=== PATIENT | female | born 1980 | race Caucasian/White ===

== ENCOUNTER 2019-07-03 13:12 | Outpatient (CLI) | payer BC, SELFPAY ==
--- NOTE | ~2019-07-03 | MR_ITS ---
EXAMINATION: MR knee RT wo con DATE: 07/03/2019 15:04 INDICATION: Lateral right knee pain was reported recent dislocation 1 month prior. TECHNIQUE: Magnetic resonance imaging (MRI) of the right knee was performed without intravenous contr ast. Sequences included coronal PD-weighted FSE, coronal PD-weighted FS FSE, sagittal T2-weighted FS E, sagittal PD-weighted FS FSE and axial PD weighted fat saturated FSE. COMPARISON: None. FINDINGS: Medial compartment: Medial meniscus is normal. Shallow partial thickness fissure or potentially nondisplaced shallow chucho dral flap along the anterolateral margin of the anterior weightbearing medial femoral condyle. Remain liz of the articular cartilage is normal. Lateral compartment: Lateral meniscus is normal. Articular cartilage is normal. Patellofemoral compartment: Horizontal band of deep chondral fissuring with mild underlying subarticular edema and likely develop ing cystic change which extends across the central aspect of the lateral patellar facet, apical ridge and medial facet. Deep chondral ulceration with irregularity to the articular cortex and mild subart icular edema extending from the central aspect of the medial trochlea to the inferior aspect of the t rochlear groove and adjacent inferomedial aspect of the lateral trochlea. Ligaments and tendons: Avulsion at the femoral footplate of the posterolateral bundle of the anterior cruciate ligament whic h is retracted distally with mild thickening of the tear margin which is retracted approximately 5 mm distally. The anteromedial band of the anterior cruciate ligament remains intact. There is mild thic kening and increased signal involving the posterior half of the proximal medial collateral ligament w ith minimal surrounding edema consistent with a likely subacute moderate grade sprain. The extensor m echanism is normal. The visualized medial and lateral hamstring tendons as well as the iliotibial ban d are normal. Fluid: Minimal right knee joint effusion. No loose osteochondral bodies identified. Osseous/other: Mild increased PD weighted signal extending along the posterior aspect of the medial tibial plateau m arrow and juxtaposed medial margin of the central weightbearing medial femoral condyle without eviden t fracture lines with location suggesting possible bone contusion. More diffuse scattered patchy subt le increased signal in the metaphyseal regions of the tibia and distal femur are more likely related to red marrow reexpansion. No fracture or pathologic marrow replacing process. IMPRESSION: 1. Avulsion of the femoral attachment of the posterolateral bundle of the anterior cruciate ligament. The anteromedial bundle appears to remain intact. 2. Moderate grade sprain of the proximal medial collateral ligament. 3. 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 4. Possible bone contusions along the posterior aspect of the medial tibial plateau and medial side o f the central weightbearing medial femoral condyle. Reviewed, dictated and finalized at location A. H PAINTER IMPRESSION: 1. Avulsion of the femoral attachment of the posterolateral bundle of the anter ior cruciate ligament. The anteromedial bundle appears to remain intact. 2. Moderate grade sprain of the proximal medial collateral ligament. 3. 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 4. Possible bone contusions along the posterior aspect of the medial tibial alicia teau and medial side of the central weightbearing medial femoral
== END 2019-07-03 13:13 | disposition home or self-care (01) ==
PROVIDERS: Visit Provider Orthopaedic Surgery
DX: S83.511A Sprain of anterior cruciate ligament of right knee, initial encounter (principal); M22.41 Chondromalacia patellae, right knee
CPT/HCPCS: 73721

== ENCOUNTER → 2021-10-18 10:38 | Outpatient (CLI) | payer BC, SELFPAY ==
--- NOTE | ~2021-10-18 | MM_ITS ---
EXAMINATION: MM screening carolyne BI w shanta HISTORY: Screening mammogram TECHNIQUE: Craniocaudal and mediolateral oblique 3-D tomosynthesis images were obtained and synthetic 2-D images were generated. CAD analysis was submitted and interpreted. COMPARISON: No prior mammogram is available for comparison at this institution. BREAST PARENCHYMAL COMPOSITION: The breasts are heterogeneously dense, which may obscure small masses . FINDINGS: Postoperative change from bilateral reduction mammoplasty. There is no evidence of suspicio us mass, calcification, or architectural distortion to suggest malignancy in either breast. IMPRESSION: 1. No mammographic evidence of malignancy. 2. Recommend routine screening mammography in one year. BI-RADS Category 2: Benign finding(s). Reviewed, dictated and finalized at location A.
== END ==
PROVIDERS: PCP Obstetrics & Gynecology; Visit Provider Obstetrics & Gynecology
DX: Z12.31 Encounter for screening mammogram for malignant neoplasm of breast (principal)
CPT/HCPCS: 77063; 77067

== ENCOUNTER 2022-04-13 10:48 | Emergency (ER) | payer BC, SELFPAY ==
[2022-04-13 11:38] VITALS: BP 108/82; PULSE 113; RESP 18; TEMP 36.8; O2SAT 100
--- NOTE | 2022-04-13 12:27 | ED.URI ---
HPI - URI/Sore Throat General Chief Complaint: Upper Respiratory Infection Stated Complaint: sorethroat,cough,bodyaches Time Seen by Provider: 04/13/22 12:14 Source: patient Mode of arrival: ambulatory Limitations: no limitations History of Present Illness HPI Narrative: Patient presents today complaining of chills, sweats, headache, mild cough, sore throat, postnasal drip since yesterday. She denies fever shortness of breath. She has been taking Aleve, NyQuil, and vitamin-C with some relief. Related Data Allergies Allergy/AdvReac Type Severity Reaction Status Date / Time clarithromycin Allergy Unknown Hives Verified 04/13/22 11:37 levofloxacin Allergy Unknown unknown Verified 04/13/22 11:37 morphine AdvReac Mild SICK N/V Verified 04/13/22 11:37 Review of Systems Review of Systems: CONSTITUTIONAL: Denies body aches, fever. + chills, sweats EYES: Denies visual changes, redness, or discharge. ENT: Denies rhinorrhea, congestion, or otalgia.+ sore throat, postnasal drip CARDIOVASCULAR: Denies chest pain, palpitations, or edema. RESPIRATORY: Denies dyspnea.+ cough GASTROINTESTINAL: Denies abdominal pain, nausea, vomiting, or diarrhea. GENITOURINARY: Denies dysuria or hematuria. SKIN: Denies rash, itching, or wounds. MUSCULOSKELETAL: Denies back pain, joint pain, or myalgia. NEUROLOGIC: Denies numbness, tingling, or + headache PSYCH: Denies depression or anxiety. 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 History of laparoscopy age 14 endometriosis History of robot-assisted laparoscopic hysterectomy (01/21/17) Robtic assisted total laparoscopic Hysterectomy - uterine prolaspe- menometrorrhagia- Dysmenorrhea- parakertosis, subserosal fibrosis , myometrium; bilateral salpingectomy Family History Family History Mother Diabetes mellitus Lymphedema Malignant neoplasm of eye Basal cell carcinoma of skin Family history of heart disease Family history of stroke Social History Social History Smoking status: Never smoker Alcohol intake: never Substance use: never Substance use type: does not use Additional living arrangements comments: and 2 children. Additional occupation/education comments: Stylist Gender identity (if verbalized by the patient): Female Sexual Orientation (if Verbalized by the Patient): Straight or Heterosexual Comments At time of signature, I have reviewed and agree with nursing past medical, surgical, social and family history unless otherwise noted. Please see nursing chart for further information. There is no relevant family history pertinent to the presenting complaint Exam Narrative: GENERAL: mildly ill-appearing, well-nourished, and in no acute distress. HEAD: Normocephalic, atraumatic. EYES: EOMI. No redness or drainage. Conjunctivae normal. ENT: Mucous membranes pink and moist. Nares clear. No rhinorrhea. TMs normal bilaterally. Throat normal. Uvula midline. NECK: Normal AROM. Supple. No lymphadenopathy. CHEST: No respiratory distress. Clear to auscultation. HEART: Regular rate and rhythm. No murmur appreciated. Normal peripheral pulses. EXTREMITIES: Normal range of motion. No edema. SKIN: Warm, dry, no rash. Capillary refill normal. Normal skin turgor. NEURO: No focal deficits. Alert and oriented x3. Gait steady. PSYCH: Normal affect. No signs of depression or anxiety. Course
== END 2022-04-13 12:40 | disposition home or self-care (01) ==
PROVIDERS: Emergency Provider Nurse Practitioner
DX: J06.9 Acute upper respiratory infection, unspecified (principal); N80.9 Endometriosis, unspecified; R01.1 Cardiac murmur, unspecified
CPT/HCPCS: 99211; G0463

== ENCOUNTER 2023-07-18 12:56 | Emergency (ER) | payer BC, SELFPAY ==
--- NOTE | 2023-07-18 13:06 | ED.URI ---
HPI - URI/Sore Throat General Chief Complaint: Upper Respiratory Infection Stated Complaint: cold / flu like symptoms Time Seen by Provider: 07/18/23 13:06 Source: patient Mode of arrival: ambulatory Limitations: no limitations History of Present Illness HPI Narrative: Felisha is a 42-year-old female patient presenting to the clinic today with complaints of runny nose, cough, congestion, headache, body aches, and chills x5 days. MD elicited complaint: sore throat and nasal congestion Related Data Home Medications Medication Instructions Recorded Confirmed No Home Medications 07/18/23 07/18/23 Allergies Allergy/AdvReac Type Severity Reaction Status Date / Time clarithromycin Allergy Unknown Hives Verified 07/18/23 13:19 levofloxacin Allergy Unknown unknown Verified 07/18/23 13:19 morphine AdvReac Mild SICK N/V Verified 07/18/23 13:19 Review of Systems Review of Systems: Pertinent positives per HPI. Patient denies any fever, rash, headache, visual changes, dizziness, shortness of breath, chest pain, palpitations, nausea, vomiting, diarrhea, constipation, abdominal pain, or any urinary issues. 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 History of laparoscopy age 14 endometriosis History of robot-assisted laparoscopic hysterectomy (01/21/17) Robtic assisted total laparoscopic Hysterectomy - uterine prolaspe- menometrorrhagia- Dysmenorrhea- parakertosis, subserosal fibrosis , myometrium; bilateral salpingectomy Family History Family History Mother Diabetes mellitus Lymphedema Malignant neoplasm of eye Basal cell carcinoma of skin Family history of heart disease Family history of stroke Social History Social History (Updated 10/15/22 @ 09:53 by YOAN Joseph) Smoking status: Never smoker Alcohol intake: never Substance use: never Substance use type: does not use Lack of Transportation: No Lack of Food: Never True Current Housing: I Have Housing Concerned About Future Housing: No Difficulty Paying Gas/Electric Bills: No Difficulty Paying for Meds: No Currently Unemployed: No Education: Trade/Vocational Certificate Difficulty w/ Childcare or Family Care: No Living arrangements: other Additional living arrangements comments: and 2 children. 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 There is no relevant family history pertinent to the patient complaint. Exam Narrative: General: Well-developed, well nourished, in no apparent distress Head: Normocephalic, atraumatic Eyes: Pupils equally round and reactive to light bilaterally, EOM intact, sclera and conjunctive clear, no discharge, lids normal Ears: TMs intact and clear, ear canals clear, no drainage, grossly hearing normal. Nose: Nares patent, clear nasal discharge, no inflammation, no sinus tenderness. Mouth: Oral pharynx without lesions or masses, good dentition, MMM. Postnasal drip Neck: Supple, trachea midline, no enlargement of anterior or posterior cervical nodes, no thyroid masses or goiter palpable. Cardio: Regular rate and rhythm, s1 and s2 normal, no murmur appreciated. Resp: Clear to
[2023-07-18 13:16] VITALS: BP 116/68; PULSE 110; RESP 18; TEMP 37.1; O2SAT 100
== END 2023-07-18 14:00 | disposition home or self-care (01) ==
PROVIDERS: Emergency Provider Nurse Practitioner Family
DX: B34.9 Viral infection, unspecified (principal); J06.9 Acute upper respiratory infection, unspecified; J02.9 Acute pharyngitis, unspecified; Z20.822 Contact with and (suspected) exposure to COVID-19; R01.1 Cardiac murmur, unspecified
CPT/HCPCS: 87081; 87426; 87804; 87880; 99213; G0463

== ENCOUNTER 2024-08-08 14:12 | Outpatient (CLI) | payer BC, SELFPAY ==
--- NOTE | ~2024-08-08 | MM_ITS ---
EXAMINATION: MM screening carolyne BI w shanta HISTORY: Screening TECHNIQUE: Craniocaudal and mediolateral oblique 3-D tomosynthesis images were obtained and synthetic 2-D images were generated. CAD analysis was submitted and interpreted. COMPARISON: 10/18/2021 BREAST PARENCHYMAL COMPOSITION: The breasts are heterogeneously dense, which may obscure small masses . FINDINGS: Punctate calcifications detected bilaterally, stable and benign in appearance, dermal in or igin. Stable parenchymal pattern without suspicious microcalcifications, architectural distortion, discrete masses or significant asymmetry. IMPRESSION: 1. No mammographic evidence of malignancy. 2. Recommend routine screening mammography in one year. BI-RADS Category 2: Benign finding(s). Reviewed, dictated and finalized at location A.
--- OUTSIDE RECORDS SUMMARY | 2024-08-08 16:21 | XMS_ITS | Clinical Summary ---
Author Organization [facility] Address [facility] [place] [address] Care Team Providers Care Bone Char Kiln Tender Name Role Phone Unavailable Primary Care Provider Unavailabl e Allergies Active Allergy Reactions Criticality Noted Date Comments Clarithromycin Hives,Swelling,Throat swelling 0 02/11/2019 Medications valACYclovir 500 MG tablet TAKE 1 TABLET BY MOUTH TWICE DAILY FOR 3 DAYS NEEDED 06/27/2020 Active Active Problems No known active problems Immunizations Name Administration Dates Next Due PFIZER COVID-19 (ORIGINAL FO RMULATION, PURPLE CAP) mRNA, LNP-S, PF, 30 MCG/0.3 ML DOSE 07/19/2020 Family History Medical History Relation Comments Blood Disease Father thick blood Cancer Mother eye Diabetes Mother Mental Health Mother Relation Status Comments Father Alive Mother Alive Social History Tobacco Use Types Packs/Day Years Used Date Smoking Tobacco: Never Smokeless Tobacco: Never Alcohol Use Standard Drinks/Week Comments No 0 (1 standard drink = 0.6 oz pur e alcohol) AUDIT-C Answer Date Recorded Frequency of Alcohol Consumption Never 02/11/2019 Average Number of Drinks Not on file 019 Frequency of Binge Drinking Not on file 01/17 PHQ-2 Answer Date Recorded PHQ-2 Score - If the patient scores above 3, please move on to questions 3-9 0 01/24/2021 Education Answer Date Recorded What is the highest level of school you have completed or the highest degree you have received? Some college, no degree 02/11/2019 Comments No Sex and Gender Information Value Date Recorded Sex Assigned at Female 02/11/2019 9:11 AM CDT Legal Sex Female 4:50 PM CDT Gender Identity Female 02/11/2019 9:11 AM CDT Sexual Orientation Straight 02/11/2019 9: 11 AM CDT Last Filed Vital Signs Vital Sign Reading Time Taken Comments Blood Pressure 102/68 01/24/2021 12:53 PM CDT Pulse 103 01/24/2021 12:53 PM CDT Temperature 36.2 C (97.2 F) 01/24/2021 12:53 PM CDT Respiratory Rate 16 01/24/2021 12:53 PM CDT Oxygen Saturation 98% 01/24/2021 12:53 PM CDT Inhaled Oxygen Concentration - - Weight 87.5 kg (193 lb) 01/24/2021 12:53 PM CDT Height 165.1 cm (5' 5 ) 01/24/2021 12:53 PM CDT Body Mass Index 32.12 01/24/2021 12:53 PM CDT Plan of Treatment Health Maintenance Due Date Last Done Comments Annual Physical 1984 Hepatitis C 08/08/1999 DTaP, Tdap and Td Vaccines ( 1 - Tdap) 2000 Hepatitis B Vaccines (1 of 3 - 19+ 3-dose series) 2000 Mammogram Screening 2021 COVID-19 Vaccine (2 - 2023-2 5 season) 2024 07/19/2020 Influenza Adult (#1) 2024 HPV Vaccines Aged Out No longer eligi ble based on patient's age to complete this topic Meningococcal B Vaccine Aged Out No l onger eligible based on patient's age to complete this topic Meningococcal Vaccine Aged Out No meliza tasha eligible based on patient's age to complete this topic Pneumococcal Vaccine: Pediat rics (0 to 5 Years) and At-Risk Patients (6 to 64 Years) Aged Out No longer eligi ble based on patient's age to complete this topic RSV Immunizations Under 20 Months Aged Out No longer eligible based on patient's age to complete this topic Insurance
--- OUTSIDE RECORDS SUMMARY | 2024-08-08 16:21 | XMS_ITS | Patient Health Record ---
Author Organization [facility] Address [address] [place], [place] [id number] Care Team Providers Care Promotional Demonstrator Name Role Phone OLEKAIDEN Primary Care Provider Unavailab le ALLERGIES Allergen (clinical drug ingredient) Drug/Non Drug Allergy documented on EMR Reaction Allergy Type Onset Date Status bioxon (uncoded) Unknown Allergy Act tasia REASON FOR REFERRAL No Information MEDICATIONS Medication SIG (Take, Route, Frequency, Duration) Notes Start Date End Date Status Diflucan 200 MG 1 tablet Orally as directed for 7 days take 1 today and repeat in 1 wk 04/29/2021 Active Ketoconazole 2 % 5 ml Externally Once a day for 30 days 04/29/2021 Active Calcipotriene 0.005 % 1 application Externally Twice a day for 30 days 04/02/2021 Active Triamcinolone Acetonide 0.1 % 1 application to trunk/ext Externally Twice a day for 30 days 02/27/2021 Active IMMUNIZATIONS Vaccine Route Administration Date Status Comme nts Influenza, unspecified formu lation (CPT 12058 Inactive) Unknown 02/15/2021 Administered Pneumococcal polysaccharide PPV23 Unknown 02/27/2021 Re fused Influenza, unspecified formu lation (CPT 45567 Inactive) Unknown 04/29/2021 Refused Pneumococcal polysaccharide PPV23 Unknown 04/29/2021 Re fused SOCIAL HISTORY Tobacco Use: Social History Observation Description Date Details (start date - stop date) Never Smoker NA - NA Sex Assigned At : Social History Observation Description Sex Assigned At Unknown Tobacco Use/Smoking Question Answer Notes Are you a nonsmoker PROBLEMS Problem Type ICD Code Onset Dates Problem Status W/U Status Risk SNOMED Code Notes Problem Psoriasis vulgaris (L40.0) Active confirmed Psoriasis vulgaris (518514320) We will treat with triamcinolone as needed. Problem Tinea versicolor (B36.0) Active confirmed Tinea versicolor (82774724) Probably worsening because of triamcinolone. Will discontinue triamcinolone to the trunk except for immediately beneath the breast. We will treat patient with Diflucan 200 mg p.o. weekly and Nizoral shampoo weekly. She was warned of the side effects of her medication. PLAN OF TREATMENT No Information Insurance Providers Payer Name Payer Address Payer Phone Subscriber Number Group Number Insured Name Patient Relationship to Insured Coverage Start Date Coverage End Date [employer] [address] [place] [phone] [id number] SVETLANA RICHARDSON Self - patient is the insured MEDICAL (GENERAL) HISTORY Medical History History ICD Code Herpes Simplex Virus Surgical History Surgery Date(Month/Year) hysterectomy
== END 2024-08-08 14:13 | disposition home or self-care (01) ==
LOC: CHSIMG 14:14
PROVIDERS: PCP Physician Assistant; Visit Provider Obstetrics & Gynecology
DX: Z12.31 Encounter for screening mammogram for malignant neoplasm of breast (principal)
CPT/HCPCS: 77063; 77067